=== PATIENT | male | born 1950 | race Caucasian/White ===

== ENCOUNTER 2020-05-12 13:31 | Emergency (ER) | payer MEDICARE ==
--- NOTE | 2020-05-12 13:34 | ERPHSYRPT ---
- History of Present Illness Time Seen by Provider: 05/12/20 13:34 Source: patient Exam Limitations: no limitations Physician History: This is a 69-year-old male who was renting a boat and was releasing the anchor rope and there was a fish hook embedded in the ankle rope itself. He presents with the fishhook in his left fifth digit. Patient's tetanus status is not up-to-date. Occurred: just prior to arrival Method of Injury: other ([place] finger injury) Quality: sharpness Severity of Pain-Max: mild Severity of Pain-Current: mild Extremities Pain Location: 5th finger: left Modifying Factors: Improves With: movement Allergies/Adverse Reactions: UNOBTAINABLE Allergy (Unverified 05/12/20 13:59) Home Medications: Famotidine [Pepcid AC] 10 mg PO DAILY 05/12/20 [History] Pravastatin Sodium 1 ea DAILY 05/12/20 [History] Travel Risk - International Travel Have you traveled outside of the country in past 3 weeks: No - Coronavirus Screening Are you exhibiting any of the following symptoms?: No Close contact with a COVID-19 positive Pt in past 14-21 Days: No - Review of Systems Constitutional: No Symptoms Eyes: No Symptoms Ears, Nose, & Throat: No Symptoms Respiratory: No Symptoms Cardiac: No Symptoms Abdominal/Gastrointestinal: No Symptoms Genitourinary Symptoms: No Symptoms Musculoskeletal: No Symptoms Skin: Other (Skin hook lateral aspect left fifth digit) Neurological: No Symptoms Psychological: No Symptoms Endocrine: No Symptoms Hematologic/Lymphatic: No Symptoms Immunological/Allergic: No Symptoms All Other Systems: Reviewed and Negative - Past Medical History Pertinent Past Medical History: No Neurological History: No Pertinent History ENT History: No Pertinent History Cardiac History: No Pertinent History Respiratory History: No Pertinent History Endocrine Medical History: No Pertinent History Musculoskeletal History: No Pertinent History GI Medical History: No Pertinent History History: No Pertinent History Psycho-Social History: No Pertinent History Male Reproductive Disorders: No Pertinent History - Past Surgical History Past Surgical History: No Neuro Surgical History: No Pertinent History Cardiac: No Pertinent History Respiratory: No Pertinent History Gastrointestinal: No Pertinent History Genitourinary: No Pertinent History Musculoskeletal: No Pertinent History Male Surgical History: No Pertinent History - Nursing Vital Signs Nursing Vital Signs: Initial Vital Signs Temperature 98.2 F 05/12/20 13:54 Pulse Rate 75 05/12/20 13:54 Respiratory Rate 18 05/12/20 13:54 Blood Pressure 144/83 05/12/20 13:54 O2 Sat by Pulse Oximetry 96 05/12/20 13:54 Pain Scale Pain Intensity 0 - Physical Exam General Appearance: no apparent distress, alert, anxiety Eyes, Ears, Nose, Throat Exam: normal ENT inspection, moist mucous membranes Neck Exam: normal inspection, non-tender, supple, full range of motion Cardiovascular/Respiratory Exam: chest non-tender Abdominal Exam: non-tender Back Exam: normal inspection, normal range of motion, No CVA tenderness, No vertebral tenderness Shoulder Exam: normal inspection, non-tender, no evidence of injury, normal ROM Elbow/Forearm Exam: normal inspection, non-tender, no evidence of injury, normal ROM Wrist Exam: normal inspection, non-tender, no evidence of injury, normal ROM Hand Exam: normal ROM, soft tissue tenderness (Left fifth digit radial aspect skin hook present. Patient is neurovascularly intact and tendon function is normal) Neuro/Tendon Exam: normal sensation, normal motor functions, normal tendon functions Mental Status Exam: alert, oriented x 3, cooperative Skin Exam: normal color, warm, dry SpO2 Interpretation: normal O2 Delivery: Room Air Procedures - Additional Procedures Progress: Procedure note: The left fifth digit was prepped with Betadine solution. The skin and subcutaneous tissue around the fishhook was anesthetized with 1-1/2 cc of 1% lidocaine plain. The skin hook was then removed intact. There were no complications and the patient tolerated procedure well - Course Nursing assessment & vital signs reviewed: Yes - Progress Progress: improved Counseled pt/family regarding: diagnosis - Departure Departure Disposition: Home Clinical Impression: [place] injury to finger Condition: Stable Critical Care Time: No Additional Instructions: Keep area clean twice daily with soap and water. Do not use lotions ointments or creams. Cover the injury site with Band-Aid after washing with soap and water and drying. Use Tylenol and ibuprofen for pain control if no contraindications.
[2020-05-12 13:59] VITALS: BP 144/83; PULSE 75; O2SAT 96
[2020-05-12] MEDS ORDERED: Adacel Vial IM ONE ×2 (14:12→14:20)
== END 2020-05-12 14:32 | disposition home or self-care (01) ==
LOC: ED 13:31
DX: S61.235A Puncture wound without foreign body of left ring finger without damage to nail, initial encounter (principal); W26.8XXA Contact with other sharp object(s), not elsewhere classified, initial encounter
CPT/HCPCS: 90471; 90715; 99283